=== PATIENT | female | born 1965 | race Caucasian/White ===

== ENCOUNTER 2021-06-16 14:16 | Outpatient (REF) | payer MEDICARE, OTHER, SELFPAY ==
[2021-06-16 15:22] LABS: MANUAL DIFF FLAG NO
[2021-06-16 15:36] LABS: Basophils Percent Auto 0.3 % (0-2); Eosinophils Percent Auto 0.3 % (0-4); Hematocrit 42.8 % (37-47); Imm Gran Abs Auto 0.03 X10*3/uL (0.00-0.03); Imm Gran Pct Auto 0.5 % (0.0-0.4); Lymphocytes Absolute Auto 1.3 X10*3/uL (1.2-4.9); Lymphocytes Percent Auto 20.7 % (20-40); Mean Corpuscular HGB Conc 32.7 g/dl (31.0-35.0); Mean Corpuscular Hemoglobin 28.4 pg (27.0-33.0); Mean Corpuscular Volume 86.8 fL (80-98); Mean Platelet Volume 10.4 fL (9.4-12.3); Monocytes Absolute Auto 0.5 X10*3/uL (0.1-1.2); Monocytes Percent Auto 8.4 % (2-11); Neutrophils Absolute Auto 4.4 X10*3/uL (2.0-8.3); Neutrophils Percent Auto 69.8 % (45-73); Platelet Count 153 X10*3/uL (160-400); Red Blood Count 4.93 X10*6/uL (4.20-5.50); Red Cell Distribution Width 13.3 % (11.0-16.0); White Blood Count 6.3 X10*3/uL (4.8-10.8)
== END 2021-06-16 14:17 | disposition home or self-care (01) ==
LOC: HO.LAB 14:16
PROVIDERS: PCP Internal Medicine; Visit Provider Surgery
DX: D05.11 Intraductal carcinoma in situ of right breast (principal); D64.9 Anemia, unspecified
CPT/HCPCS: 36415; 85025; 99212

== ENCOUNTER 2021-07-17 13:55 | Outpatient (REF) | payer MEDICARE, OTHER, SELFPAY ==
--- NOTE | ~2021-07-17 | MM_ITS ---
EXAMINATION: MM SCREENING DIGITAL BREAST TOMOSYNTHESIS, BILATERAL CLINICAL INFORMATION: Due for yearly. 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 COMPARISON: Mammography: 01/24/2019, 01/09/2018, targeted ultrasound left breast 01/09/2018 TECHNIQUE: Digital breast tomosynthesis is performed in both the craniocaudal and mediolateral oblique views along with computer-aided detection (CAD). Synthesized 2D images are generated from the tomosynthesis. FINDINGS: There are scattered areas of fibroglandular density (ACR BI-RADS breast composition Category b). There are no significant masses, abnormal calcifications, or other abnormalities. There are minor post therapy changes posterior inferior right breast with mild reduced breast size and stable scarring. Bilateral breast parenchymal pattern is similar to prior studies. No developing density. No significant changes. MM/MM tomosynthesis screening BI IMPRESSION: No mammographic evidence of malignancy. ASSESSMENT: BI-RADS 2: Benign RECOMMENDATION: Routine annual mammography screening. This patient's information was entered into a reminder system with a target due date for their next mammogram.
== END 2021-07-17 13:56 | disposition home or self-care (01) ==
LOC: HO.MAMMO 13:55
PROVIDERS: PCP Internal Medicine; Visit Provider Surgery
DX: Z12.31 Encounter for screening mammogram for malignant neoplasm of breast (principal)
CPT/HCPCS: 77063; 77067

== ENCOUNTER → 2021-12-04 13:04 | Outpatient (BNVA) | payer MEDICARE, OTHER, SELFPAY | PROVIDERS: PCP Internal Medicine; Referring Provider Internal Medicine; Visit Provider Surgery | DX: K62.5 Hemorrhage of anus and rectum (principal); K60.2 Anal fissure, unspecified | CPT/HCPCS: 99212 ==

== ENCOUNTER 2022-02-03 05:53 | Day surgery (SDC) | payer MEDICARE, OTHER, SELFPAY ==
[2022-01-29 13:59] VITALS: BMI 28.1
--- NOTE | 2022-02-02 09:43 | P.CONAN_ITS ---
Documented by User: Ivette Hutchison NP 02/02/22 09:45 HPI - Anesthesia Eval Consult details Narrative: 56yo F for EUA, Hemorrhoidectomy, Poss Sphincterotomy *Mult Allergies* PMFSH Active Problems Active Problems: All Active Problems (Updated 01/29/22 @ 13:57 by Vandana Kwon RN) Anemia (Acute) Ductal carcinoma in situ of right breast (Acute) Rectal bleeding (Acute) Anal fissure (Acute) Prolapsed internal hemorrhoids (Acute) History of rectal sphincterotomy (Acute 05/14/19) Past Medical History Medical History History of right breast cancer Family History Family History Paternal Grandmother History of breast cancer Maternal Grandmother History of breast cancer, Onset Age: 53 Surgical History Surgical History (Updated 01/29/22 @ 13:56 by Vandana Kwon RN) History of 2 sections History of lumpectomy of right breast History of rectal sphincterotomy (05/14/19) History of repair of left rotator cuff History of right knee surgery History of tonsillectomy Social History Social History Alcohol intake: never Patient Tobacco Use Status: Never used Tobacco Use of substances other than those prescribed or required for medical reasons: No Advance Directives: No Advance Directives Information Provided: Yes Advance Directives on File: No Meds Allergies Allergy/AdvReac Type Severity Reaction Status Date / Time sulfamethoxazole Allergy Mild Hives Verified 12/04/21 13:17 [From Bactrim] trimethoprim [From Bactrim] Allergy Mild Hives Verified 12/04/21 13:17 lisinopril Allergy Unknown Unknown Verified 12/04/21 13:17 Sulfa (Sulfonamide Allergy Unknown Itchy Eyes Verified 12/04/21 13:17 Antibiotics) Benadryl Allergy Mild Fainting Uncoded 12/04/21 13:17 Cortisone Allergy Mild Swelling Uncoded 12/04/21 13:17 Home Medications Medication Instructions Recorded Confirmed Last Taken Type diazepam 5 mg tablet 5 mg PO TID PRN 12/04/21 01/29/22 Unknown History Exam Exam Date and Time: February 02, 2022 0943 Height,Weight and Vital Signs: Height 5 ft 1 in Weight 67.585 kg Pertinent Lab Results Pertinent Lab Results: Laboratory Tests 06/16/21 15:02 WBC 6.3 Hgb 14.0 Hct 42.8 Plt Count 153 L Assessment and Plan Assessment Anesthesia Assessment: Chart Reviewed Documented by User: Brie Thornton MD 02/03/22 07:19 [facility] Past Medical History Medical History History of right breast cancer Functional capacity: independent ambulation Patient : No Family History Family History Paternal Grandmother History of breast cancer Maternal Grandmother History of breast cancer, Onset Age: 53 Family history of problems with anesthesia: No Surgical History Surgical History (Updated 01/29/22 @ 13:56 by Vandana Kwon RN) History of 2 sections History of lumpectomy of right breast History of rectal sphincterotomy (05/14/19) History of repair of left rotator cuff History of right knee surgery History of tonsillectomy History of Problems with Anesthesia: No Social History Social History Alcohol intake: never Patient Tobacco Use Status: Never used Tobacco Use of substances other than those prescribed or required for medical reasons: No Advance Directives: No Advance Directives Information Provided: Yes Advance Directives on File: No Meds Allergies Allergy/AdvReac Type Severity Reaction Status Date / Time sulfamethoxazole Allergy Mild Hives Verified 12/04/21 13:17 [From Bactrim] trimethoprim [From Bactrim] Allergy Mild Hives Verified 12/04/21 13:17 lisinopril Allergy Unknown Unknown Verified 12/04/21 13:17 Sulfa (Sulfonamide Allergy Unknown Itchy Eyes Verified 12/04/21 13:17 Antibiotics) Benadryl Allergy Mild Fainting Uncoded 12/04/21 13:17 Cortisone Allergy Mild Swelling Uncoded 12/04/21 13:17 Home Medications Medication Instructions Recorded Confirmed Last Taken Type diazepam 5 mg tablet 5 mg PO TID PRN 12/04/21 01/29/22 Unknown History Exam Airway Mallampati Class: II (E) TM Dist: >3cm Neck ROM: Full Heart: RRR Lungs: CTA Assessment and Plan Final Anesthetic Review Family History of Problems with Anesthesia: No History of Problems with Anesthesia: No NPO: Yes ASA Class: II Final Preanesthetic Review: No Changes in Pt Med Stat, Meds/Allgs Chart Reviewed, Consent Obtained/Reviewed and Anes Risks/Benef Reviewed Patient Risk: Low Procedure Risk: Low Anesthetic Plan Anesthetic Plan: GA Disposition: Standard PACU
[2022-02-03] VITALS (13 sets, daily range): BP systolic 112–135; BP diastolic 57–83; PULSE 53–85; RESP 14–20; TEMP 36.1–36.3; O2SAT 97–100
--- NOTE | 2022-02-03 07:23 | MHC.SHP ---
Pre-Procedural Eval Section A Date of Service: 02/03/22 The patient is an INPATIENT: No Changes since office visit: Yes Patient answered all questions; No Cold of Flu in the past 2 weeks, No New Medical Problems and No Changes in Medication The History & Physical has been completed within 30 days and I have reviewed it.: No Section B Chief Complaint: Hemorrhoids with complication Details of Present Illness: persistent rectal pain and bleeding with a previous history of an anal fissure Relevant Family History (Specify if Yes): No Relevant Social History: None Present Medications: see Short Stay Collaborative assessment Medical History: Significant History (DCIS right breast) History of Previous Operations: Relevant previous surgery/procedure and date(s) (anal sphincterotomy) Allergies: Allergies Allergy/AdvReac Type Severity Reaction Status Date / Time sulfamethoxazole Allergy Mild Hives Verified 12/04/21 13:17 [From Bactrim] trimethoprim [From Bactrim] Allergy Mild Hives Verified 12/04/21 13:17 lisinopril Allergy Unknown Unknown Verified 12/04/21 13:17 Sulfa (Sulfonamide Allergy Unknown Itchy Eyes Verified 12/04/21 13:17 Antibiotics) Benadryl Allergy Mild Fainting Uncoded 12/04/21 13:17 Cortisone Allergy Mild Swelling Uncoded 12/04/21 13:17 Review of Systems Sugical H&P ROS: Negative: Constitution, Cardiovascular, Respiratory, Neurological, Psychiatric, Hem-Onc, Allergic/Immunologic, Gastrointestinal, Genitourinary, Musculoskeletal, Integumentary, Endocrine and Eyes/Ears/Nose/Throat Exam Surgical H&P Exam: Normal: HEENT, Normal: Heart, Normal: Lungs, Normal: Extremities, Normal: Abdomen, Normal: Skin and Normal: Neurological Plan Diagnosis/Plan: Unchanged I have reviewed the history and physical and performed a pertinent physical examination on my patient. No changes have occurred unless specified.
--- NOTE | 2022-02-03 07:24 | W.PM.OPN ---
Operative Note Operative Note Date of Service: 02/03/22 Narrative: Preoperative diagnosis: Rectal pain and bleeding Postoperative diagnosis: prolapsing, bleeding hemorrhoids Procedure: EUA, hemorrhoidectomy Surgeon: James Huff MD Employment Consultant: none Anesthesia:General Endotracheal Indications for procedure: 56 year old female patient with complaints of persistent pain and rectal bleeding found to possibly have an anal fissure and internal prolapsing hemorrhoids Operative findings: normal anal sphincter tone without fissure. Two hemorrhoids noted anterior anal wall with ulceration of the mucosa. Specimen: Hemorrhoid x2 Estimated blood loss: 5 mL Complications: none Procedure details: patient was brought to the OR placed in a supine position. After administering general anesthesia the patient was placed in a prone position. A surgical time-out was called the consent confirmed. Patient received preoperative antibiotics and Venodyne boots were in place. Local anesthesia consisting of 0.5% Sensorcaine was then infiltrated around the perianal skin. Exam under anesthesia was then performed using a large anoscope. Digital examination revealed no evidence of anal sphincter hypertrophy. No anal fissure could be identified. Two areas of ulcerated hemorrhoids were identified in the anterior anal wall. No posterior wall lateral wall hemorrhoids were identified. First hemorrhoid was grasped with a triangular clamp. This was then clamped at its base using a tonsil clamp. A 3-0 chromic suture was then tied at its base and baseball-type stitch used to reapproximate the mucosa. This was continued as a running lock stitch back to the base of the hemorrhoid. The hemorrhoid was excised and sent to pathology for further examination. In a similar fashion the 2nd hemorrhoid was also grasped with a triangular clamp and then grasped at its base using a tonsil clamp. This was also sutured using a 3-0 chromic suture in a similar fashion. The wound was then packed with a Ray-Arnoldo and observed for several minutes. No bleeding was noted at this time. Wounds were irrigated and suctioned dry. Packing of Xeroform rolled around a dressing sponge was then placed. Additional local was infiltrated around the perianal skin. Patient was then returned to a supine position And will come from anesthesia. Patient tolerated the procedure well. Sponge, instrument, and needle counts reported as correct. Patient was transferred to PACU in stable condition.
[2022-02-03] MEDS: oxyCODONE HCl Immed Release 5 MG TABLET PO (09:00)
[2022-02-03] MEDS: fentaNYL citrate/PF 100 MCG/2 ML VIAL 25 MCG IVPUSH ×3 (09:02→10:01)
[2022-02-03] MEDS: Ketorolac Tromethamine 30 MG/ML VIAL 15 MG IVPUSH (09:10)
[2022-02-03] MEDS: ondansetron HCL 4 MG/2 ML VIAL IVPUSH (09:18)
--- NOTE | 2022-02-04 07:27 | HO.POSTANES ---
Post Anesthesia Evaluation Post Anesthesia Evaluation Anesthesia: General Mental Status: Awake Pain Control: Satisfactory Nausea/Vomiting: None Hydration: Adequate Anesthesia-Related Issues: No Anes. Related Issues
== END 2022-02-03 10:56 ==
LOC: HO.SSS 05:54
PROVIDERS: PCP Internal Medicine; Visit Provider Surgery
PROC: (CPT 46260; principal; 2022-02-03 07:30)
DX: K64.8 Other hemorrhoids (principal); K64.4 Residual hemorrhoidal skin tags; D64.9 Anemia, unspecified; Z85.3 Personal history of malignant neoplasm of breast; Z79.899 Other long term (current) drug therapy; Z88.2 Allergy status to sulfonamides; Z88.8 Allergy status to other drugs, medicaments and biological substances; Z98.890 Other specified postprocedural states
CPT/HCPCS: 46260; 88304; J1100; J1885; J2250; J2405; J2550; J3010

== ENCOUNTER → 2022-02-09 14:44 | Outpatient (BNVA) | payer MEDICARE, OTHER, SELFPAY | PROVIDERS: PCP Internal Medicine; Referring Provider Internal Medicine; Visit Provider Surgery | DX: Z48.815 Encounter for surgical aftercare following surgery on the digestive system (principal); Z87.19 Personal history of other diseases of the digestive system | CPT/HCPCS: 99212 ==

== ENCOUNTER → 2022-02-26 08:59 | Outpatient (BNVA) | payer MEDICARE, OTHER, SELFPAY | PROVIDERS: PCP Internal Medicine; Referring Provider Internal Medicine; Visit Provider Surgery | DX: Z09 Encounter for follow-up examination after completed treatment for conditions other than malignant neoplasm (principal); Z87.19 Personal history of other diseases of the digestive system | CPT/HCPCS: 99212 ==

== ENCOUNTER → 2022-06-17 15:01 | Outpatient (BNVA) | payer MEDICARE, OTHER, SELFPAY | PROVIDERS: PCP Internal Medicine; Visit Provider Surgery | DX: K62.5 Hemorrhage of anus and rectum (principal) | CPT/HCPCS: 46600; 99212 ==

== ENCOUNTER 2022-07-22 14:01 | Outpatient (REF) | payer MEDICARE, OTHER, SELFPAY ==
--- NOTE | ~2022-07-22 | MM_ITS ---
EXAMINATION: MM SCREENING DIGITAL BREAST TOMOSYNTHESIS, BILATERAL CLINICAL INFORMATION: Screening. Asymptomatic. History right DCIS posterior 6:00 status post lumpectomy and radiation COMPARISON: Mammography: 07/17/2021, 01/24/2019, 01/09/2018 TECHNIQUE: Digital breast tomosynthesis is performed in both the craniocaudal and mediolateral oblique views along with computer-aided detection (CAD). Synthesized 2D images are generated from the tomosynthesis. FINDINGS: There are scattered areas of fibroglandular density (ACR BI-RADS breast composition Category b). Right breast post therapy changes are again noted with mild reduced breast size and stable scarring. Neither breast shows interval mass or architectural abnormality or abnormal calcifications. The axilla are unremarkable. No significant changes. MM/MM tomosynthesis screening BI IMPRESSION: -No mammographic evidence of malignancy. -Post therapy changes right breast. ASSESSMENT: BI-RADS 2: Benign RECOMMENDATION: Routine annual mammography screening. This patient's information was entered into a reminder system with a target due date for their next mammogram.
== END 2022-07-22 14:02 | disposition home or self-care (01) ==
LOC: HO.MAMMO 14:01
PROVIDERS: PCP Internal Medicine; Visit Provider Internal Medicine
DX: Z12.31 Encounter for screening mammogram for malignant neoplasm of breast (principal)
CPT/HCPCS: 77063; 77067

== ENCOUNTER → 2023-06-09 13:02 | Outpatient (BNVA) | payer OTHER, SELFPAY | PROVIDERS: PCP Internal Medicine; Visit Provider Physician Assistant Medical | DX: S61.210A Laceration without foreign body of right index finger without damage to nail, initial encounter (principal); W26.9XXA Contact with unspecified sharp object(s), initial encounter | CPT/HCPCS: 12001; 99203 ==

== ENCOUNTER → 2023-06-28 07:58 | Outpatient (BNVA) | payer OTHER, SELFPAY | PROVIDERS: PCP Internal Medicine; Visit Provider Physician Assistant Medical | DX: S61.220D Laceration with foreign body of right index finger without damage to nail, subsequent encounter (principal); W26.9XXD Contact with unspecified sharp object(s), subsequent encounter | CPT/HCPCS: 99213 ==

== ENCOUNTER 2023-06-28 09:00 | Outpatient (AMB) | payer MEDICARE, OTHER, SELFPAY ==
--- NOTE | 2023-06-28 09:05 | MHC.OFFVIS ---
Intake Vital Signs 06/28/23 09:21 Height 5 ft 1 in Weight 150 lb 2 oz BMI 28.4 BP 120/72 Blood Pressure Location Lt brachial Position Sitting Pulse 65 Intake Visit Reasons: Yearly breast exam Intake Note: Patient is seen in office for yearly breast exam. Patient c/o: denies any changes or concerns regarding the breast. Registration Specialist Required: No Certified Medical Coder: Certified Medical Coder Present Accompanied by: Self / Same As Patient Allergies sulfamethoxazole [From Bactrim] Allergy (Mild, Verified 06/28/23 09:17) Hives trimethoprim [From Bactrim] Allergy (Mild, Verified 06/28/23 09:17) Hives lisinopril Allergy (Unknown, Verified 06/28/23 09:17) Unknown Sulfa (Sulfonamide Antibiotics) Allergy (Unknown, Verified 06/28/23 09:17) Itchy Eyes Benadryl Allergy (Mild, Uncoded 06/28/23 09:17) Fainting Cortisone Allergy (Mild, Uncoded 06/28/23 09:17) Swelling Medication List - Last Reconciled 06/28/23 by James Huff MD docusate sodium (Colace) 100 mg PO DAILY loratadine 10 mg PO DAILY omeprazole 40 mg PO DAILY HPI HPI Comments History of Present Illness Details Vandana Gardner is a 58 year old female patient of Francis Mo and? former patient of Dr. Hills presenting for a follow up breast examination following a right partial?mastectomy for DCIS on 02/19/2014. She underwent partial? breast irradiation at the [facility] completed on?05/03/2014. She started on?Tamoxifen on two occasions?but needed to stop the medication because of severe?side effects. Breast pathology revealed DCIS grade 1, 0.25 cm in diameter.? Patient lost her to a glioblastoma at the time of her diagnosis.? She currently denies any ongoing breast symptoms?in either side but does note some scarring at the incision site the lower portion of the right breast.? Mammography dated 07/17/2021 revealed no mammographic evidence of malignancy in either breast with only benign findings (BI-RADS 2). Annual screening mammography is recommended. She reports her daughter was diagnosed with her 4th episode of cervical cancer. [facility] Medical History History of right breast cancer Surgical History History of 2 sections History of lumpectomy of right breast History of rectal sphincterotomy (05/14/19) History of repair of left rotator cuff History of right knee surgery History of tonsillectomy Family History (Updated 06/28/23 @ 09:17 by KONRAD Medrano) Paternal Grandmother History of breast cancer Maternal Grandmother History of breast cancer, Onset Age: 53 Daughter Cervical cancer Maternal Aunt Ovarian cancer Social History Alcohol intake: never Patient Tobacco Use Status: Never used Tobacco Review of Systems Const Denies chills, Denies fever(s), Denies headache(s) and Denies poor appetite ENT Denies dizziness and Denies headache(s) Card Denies chest pain, Denies rapid heart rate, Denies palpitations and Denies slow heart rate Resp Denies chest congestion, Denies cough, Denies pain on inspiration and Denies wheezing GI Denies abdominal pain, Denies bloating, Reports hematochezia, Denies change in stool character, Denies constipation, Denies nausea, Denies vomiting and Denies hematemesis Musc Denies back pain, Denies arthralgias, Denies joint swelling and Denies numbness Skin/Breast Denies change in pigmentation, Denies erythema and Denies rash Neuro Denies dizziness, Denies headache(s) and Denies numbness Psych Denies anxiety and Denies depression Endo Denies palpitations Mariano/Lymph Denies easy bleeding, Denies easy bruising and Denies lymphadenopathy Aller/Immun Denies wheezing Physical Exam Const General: no acute distress, well developed, alert and awake Nutritional Appearance: well nourished Orientation/consciousness: patient oriented x3 Limitations: no limitations Chest Other: Right breast: Well healed incision with superficial scarring at the 6 o'clock position. No other palpable mass, skin change, nipple discharge, or enlarged lymph node. Left breast: No skin change, no nipple discharge, no palpable mass, no enlarged lymph nodes. Chest/axillae images: 1. Resp Effort & Inspection: normal respiratory effort, no cough and no respiratory distress GI Other: Rectal examination: External examination reveals some minor skin tags. No tenderness to palpation. No evidence of abscess or thrombosis. Digital rectal examination mild tenderness to palpation of the anterior rectal wall, normal sphincter tone is identified. No blood noted on examination finger. No palpable mass. Anoscopic examination: Difficult examination due to tenderness however area of inflammation is noted in the anterior rectal wall at the site of previous surgery. No definite hemorrhoid is identified. No active bleeding is identified. No other mass or hemorrhoid is identified. Skin Other: Warm, dry, no rash, normal color Neuro General: patient oriented x3 Extrem Other: No cyanosis, clubbing, or edema. Assessment & Plan Assessment & Plan (1) Ductal carcinoma in situ of right breast: Code(s): D05.11 - Intraductal carcinoma in situ of right breast Plan: Status post right breast lumpectomy with partial breast radiation in 2013 for DCIS. Examination today reveals no evidence of recurrence disease in either breast. Mammogram from 07/22/2023 no mammographic evidence of malignancy (BI-RADS 2). She is scheduled for a follow-up yearly annual mammogram on 07/26/2023. Follow-up examination recommended in 1 year. Coding Level of Care Code Est Pt Level 3 (01381) Diagnoses Ductal carcinoma in situ of right breast D05.11
[2023-06-28 09:21] VITALS: BP 120/72; PULSE 65; BMI 28.4
== END 2023-06-28 09:29 | disposition home or self-care (01) ==
PROVIDERS: PCP Internal Medicine; Visit Provider Surgery
DX: Z86.000 Personal history of in-situ neoplasm of breast (principal)
CPT/HCPCS: 99213

== ENCOUNTER 2023-07-05 13:12 | Outpatient (AMB) | payer OTHER, SELFPAY ==
--- NOTE | 2023-07-05 13:54 | MHC.OFFVIS ---
Intake Vital Signs 07/05/23 13:58 Height 5 ft 1 in Weight 152 lb BMI 28.7 Handedness Right Intake Visit Reasons: WC F/U -Rt 2nd Digit PIP Lac Intake Note: osman is a 58 year old right hand dominant female who presents today for her right 2nd Digit PIP laceration. Patient reports when she was pulling the metal fence closed her finger got caught under it and cut her pointer finger. She states that her finger is in pain and it hurts when she moves it and touch it. Patient reports noticing a bump on the base of the PIP joint. Denies numbness and tingling. Allergies sulfamethoxazole [From Bactrim] Allergy (Mild, Verified 07/05/23 13:58) Hives trimethoprim [From Bactrim] Allergy (Mild, Verified 07/05/23 13:58) Hives lisinopril Allergy (Unknown, Verified 07/05/23 13:58) Unknown Sulfa (Sulfonamide Antibiotics) Allergy (Unknown, Verified 07/05/23 13:58) Itchy Eyes Benadryl Allergy (Mild, Uncoded 06/28/23 09:17) Fainting Cortisone Allergy (Mild, Uncoded 06/28/23 09:17) Swelling HPI WC F/U -Rt 2nd Digit PIP Lac HPI Details Osman is a 58 year old right hand dominant woman who presents with a right index finger laceration. This is a work-related injury, where she cut her finger on a metal gate, DOI: 06/03/23 She has a laceration to volar aspect of her right index finger, proximal to index finger PIP joint. This was never sutured, went on to heal on its own. She is concerned about a rough bump where it healed and hypersensitivity just distal to the laceration. She says she feels like there is a pea underneath her skin She denies any numbness or tingling and says her sensation is intact. She showed me some pictures today in clinic of her initial injury and her recovery timeline. She denies any fevers, chills, or evidence of infection [facility] Medical History History of right breast cancer Surgical History History of 2 sections History of lumpectomy of right breast History of rectal sphincterotomy (05/14/19) History of repair of left rotator cuff History of right knee surgery History of tonsillectomy Family History Paternal Grandmother History of breast cancer Maternal Grandmother History of breast cancer, Onset Age: 53 Daughter Cervical cancer Maternal Aunt Ovarian cancer Social History Alcohol intake: never Patient Tobacco Use Status: Never used Tobacco Review of Systems Const All systems reviewed & are unremarkable except as noted in HPI and below Physical Exam Vital Signs: BMI result Body Mass Index 28.7 Const General: cooperative, healthy appearing and no acute distress Orientation/consciousness: patient oriented x3 HEENT Head: Yes normocephalic and Yes atraumatic Eyes EOM: EOMs intact bilaterally Resp Effort & Inspection: normal respiratory effort and able to speak in complete sentences Cardio Jugular venous distension: no JVD Skin General skin exam: turgor normal Rashes: no rashes Neuro General: patient oriented x3 Extrem Other: Evaluation of Right Upper Extremity: The patient is alert, oriented, and in no acute distress Neuro: Median, Ulnar, Radial nerves motor and sensory intact and sensation is normal to the tips of all digits Vascular: Cap refill brisk ROM: General: Wound well healed, volar aspect of the small finger There is a thickened scar just proximal to PIP joint, measuring ~6mm in diameter No mass felt under the skin No evidence of infection Some abnormal sensation distal to PIP joint over middle phalanx Normal sensation to radial & ulnar digital nerves Good strong FDS and FDP tendon functions, no pain with resisted testing of those tendons She can make a tight fist and extend all his digits Psych Appearance: grossly normal Affect: normal affect Attitude: cooperative Assessment & Plan Assessment & Plan (1) Laceration of right index finger: Code(s): S61.210A - Laceration without foreign body of right index finger without damage to nail, initial encounter Plan Assessment & Plan: 1. Right index finger laceration, proximal to the PIP joint DOI: 06/03/23 This is a work-related injury I educated her about this injury No evidence of flexor tendon or digital nerve injury This is healing well with a slightly thickened scar but she is only 4 weeks out I educated her about wound healing,her scar, and possible development of an epidermal inclusion cyst and what that would look like. She should give this a few months to resolve and see if the scar area remodels She can follow up prn She knows to contact us if she has any concerns. Scribed for Dariana Mckee MD by Gordy Vázquez, medical records manager, on 07/05/23 at 2:30 PM, EST. Coding Level of Care Code New Pt Level 3 (78960) Diagnoses Laceration of right index finger S61.210A
[2023-07-05 13:58] VITALS: BMI 28.7
== END 2023-07-05 14:52 | disposition home or self-care (01) ==
PROVIDERS: PCP Internal Medicine; Visit Provider Orthopaedic Surgery
DX: S61.210A Laceration without foreign body of right index finger without damage to nail, initial encounter (principal)
CPT/HCPCS: 99203

== ENCOUNTER → 2023-07-05 13:12 | Outpatient (BNVA) | payer OTHER, MEDICARE, SELFPAY | PROVIDERS: PCP Internal Medicine; Visit Provider Orthopaedic Surgery | DX: S61.210D Laceration without foreign body of right index finger without damage to nail, subsequent encounter (principal) | CPT/HCPCS: 99202 ==

== ENCOUNTER → 2023-07-26 14:30 | Outpatient (BNV) | payer MEDICARE, OTHER, SELFPAY | PROVIDERS: PCP Internal Medicine; Visit Provider Radiology Diagnostic Radiology | DX: Z12.31 Encounter for screening mammogram for malignant neoplasm of breast (principal) | CPT/HCPCS: 77063; 77067 ==

== ENCOUNTER 2023-07-26 14:37 | Outpatient (REF) | payer MEDICARE, OTHER, SELFPAY | END 2023-07-26 14:38 | disposition home or self-care (01) | LOC: HO.MAMMO 14:37 | PROVIDERS: PCP Internal Medicine; Visit Provider Internal Medicine | DX: Z12.31 Encounter for screening mammogram for malignant neoplasm of breast (principal) | CPT/HCPCS: 77063; 77067 ==

== ENCOUNTER 2024-06-28 09:25 | Outpatient (AMB) | payer MEDICARE, SELFPAY ==
--- NOTE | 2024-06-28 09:41 | A.OFFVIS_ITS ---
Vital Signs 3 06/28/24 09:43 Height 5 ft 1 in Weight 152 lb BMI 28.7 BP 140/77 H Blood Pressure Location Lt brachial Position Sitting Intake Visit Reasons: Yearly breast exam Intake Note: Patient is seen in office for yearly breast exam. Patient c/o: left breast pain, comes and goes at random times, for one month, near the axilla mm sched: 07/31/24 Sales And Service Consultant Required: No Presetter Operator: Presetter Operator Present Accompanied by: Self / Same As Patient Allergies sulfamethoxazole [From Bactrim] Allergy (Mild, Verified 06/28/24 09:41) Hives trimethoprim [From Bactrim] Allergy (Mild, Verified 06/28/24 09:41) Hives lisinopril Allergy (Unknown, Verified 06/28/24 09:41) Unknown Sulfa (Sulfonamide Antibiotics) Allergy (Unknown, Verified 06/28/24 09:41) Itchy Eyes Benadryl Allergy (Mild, Uncoded 06/28/24 09:41) Fainting Cortisone Allergy (Mild, Uncoded 06/28/24 09:41) Swelling HPI Comments Details: Vandana Gardner is a 59 year old female patient of Francis Mo and? former patient of Dr. Hills presenting for a follow up breast examination following a right partial?mastectomy for DCIS on 02/19/2014. She underwent partial? breast irradiation at the [facility] completed on?05/03/2014. She started on?Tamoxifen on two occasions?but needed to stop the medication because of severe?side effects. Breast pathology revealed DCIS grade 1, 0.25 cm in diameter.? Patient lost her to a glioblastoma at the time of her diagnosis.? She currently denies any ongoing breast symptoms?in either side but does note some scarring at the incision site the lower portion of the right breast.? Mammography dated 07/17/2021 revealed no mammographic evidence of malignancy in either breast with only benign findings (BI-RADS 2). Annual screening mammography is recommended. She reports her daughter was diagnosed with her 4th episode of cervical cancer. [facility] Medical History History of right breast cancer Surgical History History of 2 sections History of lumpectomy of right breast History of rectal sphincterotomy (05/14/19) History of repair of left rotator cuff History of right knee surgery History of tonsillectomy Family History Paternal Grandmother History of breast cancer Maternal Grandmother History of breast cancer, Onset Age: 53 Daughter Cervical cancer Maternal Aunt Ovarian cancer Social History Alcohol intake: never Patient Tobacco Use Status: Never used Tobacco Review of Systems Const Denies chills, Denies fever(s), Denies headache(s) and Denies poor appetite ENT Denies dizziness and Denies headache(s) Card Denies chest pain, Denies rapid heart rate, Denies palpitations and Denies slow heart rate Resp Denies chest congestion, Denies cough, Denies pain on inspiration and Denies wheezing GI Denies abdominal pain, Denies bloating, Reports hematochezia, Denies change in stool character, Denies constipation, Denies nausea, Denies vomiting and Denies hematemesis Musc Denies back pain, Denies arthralgias, Denies joint swelling and Denies numbness Skin/Breast Denies change in pigmentation, Denies erythema and Denies rash Neuro Denies dizziness, Denies headache(s) and Denies numbness Psych Denies anxiety and Denies depression Endo Denies palpitations Mariano/Lymph Denies easy bleeding, Denies easy bruising and Denies lymphadenopathy Aller/Immun Denies wheezing Physical Exam Const General: no acute distress, well developed, alert and awake Nutritional Appearance: well nourished Orientation/consciousness: patient oriented x3 Limitations: no limitations Chest Other: Right breast: Well healed incision with superficial scarring at the 6 o'clock position. No other palpable mass, skin change, nipple discharge, or enlarged lymph node. Left breast: No skin change, no nipple discharge, no palpable mass, no enlarged lymph nodes. Chest/axillae images: 2 1. area of superficial scaring right breast s/p partial mastectomy and RT Resp Effort & Inspection: normal respiratory effort, no cough and no respiratory distress Skin Other: Warm, dry, no rash, normal color Neuro Other: Mobility Assessment: 1. 3 meter assessment time (seconds) 5 2. Gait observations: Normal balance and gait General: patient oriented x3 Extrem Other: No cyanosis, clubbing, or edema. Assessment & Plan Assessment & Plan (1) Ductal carcinoma in situ of right breast: Code(s): D05.11 - Intraductal carcinoma in situ of right breast Category: Medical Plan: Status post right breast lumpectomy with partial breast radiation in 2013 for DCIS. Examination today reveals no evidence of recurrence disease in either breast. Mammogram from 07/26/2023 no mammographic evidence of malignancy (BI- RADS 2). She is scheduled for a follow-up yearly annual mammogram on 07/31/2024. Follow-up examination recommended in 1 year. Coding Level of Care Code Est Pt Level 3 (78252) Diagnoses Ductal carcinoma in situ of right breast D05.11
[2024-06-28 09:43] VITALS: BP 140/77; BMI 28.7
== END 2024-06-28 09:55 | disposition home or self-care (01) ==
PROVIDERS: PCP Internal Medicine; Visit Provider Surgery
DX: Z85.3 Personal history of malignant neoplasm of breast (principal)
CPT/HCPCS: 99213

== ENCOUNTER → 2024-06-28 09:25 | Outpatient (BNVA) | payer MEDICARE, SELFPAY | PROVIDERS: PCP Internal Medicine; Visit Provider Surgery | DX: Z86.000 Personal history of in-situ neoplasm of breast (principal) | CPT/HCPCS: 99212 ==

== ENCOUNTER 2024-07-31 14:37 | Outpatient (REF) | payer MEDICARE, SELFPAY ==
--- NOTE | ~2024-07-31 | MM_ITS ---
EXAMINATION: MM SCREENING DIGITAL BREAST TOMOSYNTHESIS, BILATERAL CLINICAL INFORMATION: Screening. Asymptomatic. COMPARISON: Mammography: Comparison is made with available priors. TECHNIQUE: Digital breast tomosynthesis is performed in both the craniocaudal and mediolateral oblique views along with computer-aided detection (CAD). Synthesized 2D images are generated from the tomosynthesis. FINDINGS: There are scattered areas of fibroglandular density (ACR BI-RADS breast composition Category b). Right post surgical changes are stable. There are no significant masses, abnormal calcifications, or other abnormalities. MM/MM tomosynthesis screening BI IMPRESSION: No mammographic evidence of malignancy. Patient describes previous breast pain. No pain at this time. Recommend clinical evaluation and if there is focal pain or if the pain is deemed clinically significantly diagnostic workup can be ordered and performed. ASSESSMENT: BI-RADS BI-RADS 2 - Benign Findings RECOMMENDATION: Routine annual mammography screening. 1 year F/U This examination should not preclude the clinical evaluation of a suspicious palpable abnormality. This patient's information was entered into a reminder system with a target due date for their next mammogram. Electronically signed by: Ainsley Ibrahim DO 08/02/2024 06:51 PM EDT
== END 2024-07-31 14:38 | disposition home or self-care (01) ==
LOC: HO.MAMMO 14:37
PROVIDERS: PCP Internal Medicine; Visit Provider Internal Medicine
DX: Z12.31 Encounter for screening mammogram for malignant neoplasm of breast (principal)
CPT/HCPCS: 77063; 77067

== ENCOUNTER → 2024-07-31 14:45 | Outpatient (BNV) | payer MEDICARE, SELFPAY | PROVIDERS: PCP Internal Medicine; Visit Provider Internal Medicine | DX: Z12.31 Encounter for screening mammogram for malignant neoplasm of breast (principal) | CPT/HCPCS: 77063; 77067 ==

== ENCOUNTER 2025-06-28 09:15 | Outpatient (AMB) | payer MEDICARE, SELFPAY ==
--- NOTE | 2025-06-28 09:17 | MHC.OFFVIS ---
Vital Signs 06/28/25 09:26 Height 5 ft 1 in Weight 144 lb 6 oz BMI 27.3 BP 138/72 Blood Pressure Location Lt brachial Position Sitting Pulse 77 Intake Visit Reasons: Yearly breast exam Intake Note: Patient is seen in office for yearly breast exam. Patient c/o: denies any changes or concerns mm:07/31/24 County Home Demonstrator Required: No Lumber Piler Operator: Lumber Piler Operator Present Accompanied by: Self / Same As Patient Allergies sulfamethoxazole (From Bactrim) Allergy (Mild, Verified 06/28/25 09:25) Hives trimethoprim (From Bactrim) Allergy (Mild, Verified 06/28/25 09:25) Hives lisinopril Allergy (Unknown, Verified 06/28/25 09:25) Unknown Sulfa (Sulfonamide Antibiotics) Allergy (Unknown, Verified 06/28/25 09:25) Itchy Eyes Benadryl Allergy (Mild, Uncoded 06/28/25 09:25) Fainting Cortisone Allergy (Mild, Uncoded 06/28/25 09:25) Swelling Medication List - Last Reconciled 06/28/25 by James Huff MD docusate sodium (Colace) 100 mg PO DAILY loratadine 10 mg PO DAILY omeprazole 40 mg PO DAILY HPI Comments Details: Vandana Gardner is a 60 year old female patient of Francis Mo and? former patient of Dr. Hills presenting for a follow up breast examination following a right partial?mastectomy for DCIS on 02/19/2014. She underwent partial? breast irradiation at the [facility] completed on?05/03/2014. She started on?Tamoxifen on two occasions?but needed to stop the medication because of severe?side effects. Breast pathology revealed DCIS grade 1, 0.25 cm in diameter.? Patient lost her to a glioblastoma at the time of her diagnosis.? She currently denies any ongoing breast symptoms?in either side but does note some scarring at the incision site the lower portion of the right breast.? Mammogram dated 07/31/2024 revealed no mammographic evidence of malignancy in either breast with only benign findings (BI-RADS 2). Annual screening mammography is recommended. She is engaged in the process of selling her house next month. She is hoping to have her mammogram after the closing. She reports a maternal cousin and maternal aunt recently diagnosed with breast cancer. Her maternal cousin was determined to be BRCA positive [facility] Medical History History of right breast cancer Surgical History History of rectal sphincterotomy (05/14/19) History of right knee surgery History of 2 sections History of repair of left rotator cuff History of tonsillectomy History of lumpectomy of right breast Family History Paternal Grandmother History of breast cancer Maternal Grandmother History of breast cancer, Onset Age: 53 Daughter Cervical cancer Maternal Aunt Ovarian cancer Social History Alcohol intake: never Patient Tobacco Use Status: Never used Tobacco Review of Systems Const All systems reviewed & are unremarkable except as noted in HPI and below Physical Exam Vital Signs: Last Vital Signs Pulse 77 06/28/25 09:26 BP 138/72 06/28/25 09:26 BMI result Body Mass Index 27.3 Const General: no acute distress, well developed, alert and awake Nutritional Appearance: well nourished Orientation/consciousness: patient oriented x3 Limitations: no limitations Chest Other: Right breast: Well healed incision with superficial scarring at the 6 o'clock position. No other palpable mass, skin change, nipple discharge, or enlarged lymph node. Left breast: No skin change, no nipple discharge, no palpable mass, no enlarged lymph nodes. Chest/axillae images:  1. Incision lower breast at crease Resp Effort & Inspection: normal respiratory effort, no cough and no respiratory distress Skin Other: Warm, dry, no rash, normal color Neuro Other: Mobility Assessment: 1. 3 meter assessment time (seconds) 5 2. Gait observations: Normal balance and gait General: patient oriented x3 Extrem Other: No cyanosis, clubbing, or edema. Assessment & Plan Assessment & Plan (1) Ductal carcinoma in situ of right breast: Code(s): D05.11 - Intraductal carcinoma in situ of right breast Category: Medical (2) Family history of breast cancer: Code(s): Z80.3 - Family history of malignant neoplasm of breast Category: Medical Plan Status post right breast lumpectomy with partial breast radiation in 2013 for DCIS. Examination today reveals no evidence of recurrence disease in either breast. Mammogram from 07/31/2024 revealed no mammographic evidence of malignancy (BI-RADS 2). She will be due for her annual mammogram in July 2025. She has a increased risk of breast cancer due to family history as well with a recently diagnosed maternal aunt and cousin diagnosed with breast cancer as well as a maternal grandmother with breast cancer. I suggested additional breast evaluation with a breast MRI and she is agreeable to this. She will continue with self-examination, follow up in 1 year. Orders: Orders MR breast BI wo/w con Today D05.11 - Intraductal carcinoma in situ of right breast, Z80.3 - Family history of malignant neoplasm of breast MM screening mammo BI Today D05.11 - Intraductal carcinoma in situ of right breast, Z80.3 - Family history of malignant neoplasm of breast Coding Level of Care Code Est Pt Level 3 (18070) Complex EM visit Add On G2211 Diagnoses Ductal carcinoma in situ of right breast D05.11 Family history of breast cancer Z80.3
[2025-06-28 09:26] VITALS: BP 138/72; PULSE 77; BMI 27.3
--- OUTSIDE RECORDS SUMMARY | 2025-06-28 09:29 | XMS_ITS | Clinical Summary ---
Author Organization [facility] Address [address] [place] [id number] Phone Care Team Providers Care Range Ecologist Name Role Phone Francis Mo MD Primary Care Provider + Allergies Active Allergy Reactions Criticality Noted Date Comments Mupirocin Hives 11/30/2017 Hydrocortisone 01/24/2023 Diphenhydramine Hcl 04/23/2015 Other reaction(s): hives fainted Labetalol Other (See Comments) 11/30/2017 Lisinopril 04/23/2015 Other reaction(s): hives Mold 04/23/2015 Other reaction(s): Unknown Other Other (See Comments) 04/04/2014 Other reaction(s): Other (See Comments) Benadryl. Seasonal Allergy. Pseudoephedrine Hcl 04/04/2014 Other reaction(s): Other (See Comments) Sulfa (Sulfonamide Antibiotics) Hives 04/04/2014 Sulfamethoxazole-Trimetho prim Hives Medium 04/04/2014 Other reaction(s): hives, Other (See Comments) Sulfur 04/23/2015 Other reaction(s): fainted Black [place] Unknown 04/23/2015 Medications LORazepam (ATIVAN) 1 MG tabletIndication s:Patellar tendinitis of left knee Take 1 tablet (1 mg total) by mouth once for 1 dose. 1 tablet 11/16/2024 Active Active Problems Problem Noted Date Diagnosed Date Left knee pain 06/11/2020 Left ankle pain 06/11/2020 Sprain of anterior talofibular ligament of right ankle 02/15/2019 Complex regional pain syndro me type 1 affecting right lower leg 02/15/2019 Right ankle pain 02/15/2019 Right leg pain 02/15/2019 Encounters Date Type Department Care Team Description 04/22/2025 9:40 AM EDT Office Visit [facility] [address] [place] [id number] Candie Snow PA-C Chronic pain in right foot (Primary Dx); Contusion of right foot, initial encounter 04/22/2025 9:11 AM EDT - 04/22/2025 11:59 PM EDT Hospital Encounter [address] [address] Candie Snow PA-C Discharge Disposition: Home or Self Care 03/28/2025 9:30 AM EDT Office Visit [facility] [address] [place] [id number] Brenton Foy PA-C Contusion of right foot, initial encounter (Primary Dx); Crushing injury of right foot, initial encounter; History of reflex sympathetic dystrophy 03/28/2025 Ancillary Orders [facility],Outside Imaging [address] [place] [address] Unknown, Unknown, from Last 3 Months Social History Tobacco Use Types Packs/Day Years Used Date Smoking Tobacco: Never Smokeless Tobacco: Never Alcohol Use Standard Drinks/Week Comments Yes 0 (1 standard drink = 0.6 oz pur e alcohol) Education Answer Date Recorded Are you interested in more education? Not on sultana e 03/11/2023 Are you concerned about learning? Not on file 03/11/2023 No 03/11/2023 No 03/11/2023 Digital Access Answer Date Recorded No 04/09/2023 No 04/09/2023 Reliable internet access at home? Not on file 04/09/2023 Device with a working camera? Not on file Comments Unknown Sex and Gender Information Value Date Recorded Sex Assigned at Female 12/06/2022 1:58 PM EST Legal Sex Female 10:34 PM EDT Gender Identity Female 12/06/2022 1:58 PM EST Sexual Orientation Not on file Last Filed Vital Signs Vital Sign Reading Time Taken Comments Blood Pressure 125/65 02/21/2019 2:01 PM EDT Pulse 78 02/21/2019 2:01 PM EDT Temperature - - Respiratory Rate - - Oxygen Saturation - - Inhaled Oxygen Concentration - - Weight 67.6 kg (149 lb) 11/15/2024 11:32 AM EST Height 154.9 cm (5' 1 ) 11/15/2024 11:32 AM EST Body Mass Index 28.15 11/15/2024 11:32 AM EST Plan of Treatment Health Maintenance Due Date Last Done Comments Adult Td,Tdap Booster 1963 LIPID PANEL 1963 DEPRESSION SCREENING 1975 HEPATITIS C SCREENING 1981 HIV ONE-TIME SCREENING (18-6 5 YEARS) 1981 PAP SMEAR 1984 SCREENING FOR DIABETES 1998 MAMMOGRAM 2003 COLOGUARD 2008 COLONOSCOPY 2008 COLORECTAL CANCER SCREENING 2008 FIT TEST 2008 FOBT 2008 SIGMOIDOSCOPY 2008 VIRTUAL COLONOSCOPY 2008 PNEUMOCOCCAL VACCINES (50+ years) (1 of 1 - PCV) 2013 ZOSTER VACCINES (1 of 2) 2013 COVID-19 VACCINE ( - 2023-2 5 season) 2024 11/17/2021, 02/12/2021, 01/14/2021 RSV VACCINE (1 - 1-dose 75+ series) 2038 SMOKING STATUS SCREENING (On ce After 26 Yrs) Completed 12/26/2024 HEPATITIS A VACCINES Aged Out No long er eligible based on patient's age to complete this topic HIB VACCINES Aged Out No longer eligi ble based on patient's age to complete this topic MENINGOCOCCAL VACCINES (ACWY) Aged Out No longer eligible based on patient's age to complete this topic MENINGOCOCCAL VACCINES (B) Aged Out N o longer eligible based on patient's age to complete this topic Medical Devices Not on file Procedures Procedure Name Priority Date/Time Associated Diagnosis Comments XR FOOT 3 OR MORE VIEWS (RIGHT) Routine 04/22/2025 9:22 AM EDT Foot fracture from Last 3 Months Results * XR FOOT 3 OR MORE VIEWS (RIGHT) (04/22/2025 9:22 AM EDT) Narrative SYSTEMGENERATED, DOCUMENTATION - 04/22/2025 9:23 AM EDT This image report has been auto-finalized and has not been read by a Radiologist. Interpretation has been included in the provider encounter note for this date of service. Candie Snow PA-C IMG XR LOWER EXTREMITY Fin al Result from Last 3 Months Insurance MEDICARE PART A & B Member Subscriber Plan / Payer (Ef fective 2018-Present) Name:Vandana Gardner Member ID:[id number] Relation to Subscriber:Self Name:Vandana Gardner Subscriber ID:[id number] Payer ID:[id number] Group ID:Not on file Type:Medicare Address: [facility] [employer] [facility] [address] [address] [place] MED[place] POS PPO REPLACEMENT MEDICARE PART A & B [place] MEDIC[place] POS PPO REPLACEMENT MEDICARE PART A & B MEDICARE PART A & B MEDICARE PART A & B [place] MEDIC[place] POS PPO REPLACEMENT MEDICARE PART A & B MEDICARE PART A & B MEDICARE POS PPO REPLACEMENT MEDICARE PART A & B MEDICARE POS PPO REPLACEMENT MEDICARE PART A & B [place] MEDIC[place] POS PPO REPLACEMENT Care Teams Range Ecologist Relationship Specialty Start Date End Date Francis Mo MD [address] [address] PCP - General 11/17/17 Additional Source Comments The information contained in this document represents components of the legal health record. It is not the complete legal health record.[facility]
== END 2025-06-28 09:38 | disposition home or self-care (01) ==
LOC: HO.HGS 09:15
PROVIDERS: PCP Internal Medicine; Visit Provider Surgery
DX: D05.11 Intraductal carcinoma in situ of right breast (principal); Z80.3 Family history of malignant neoplasm of breast
CPT/HCPCS: 99213; G2211

== ENCOUNTER → 2025-06-28 09:15 | Outpatient (BNVA) | payer MEDICARE, SELFPAY | PROVIDERS: PCP Internal Medicine; Visit Provider Surgery | DX: D05.11 Intraductal carcinoma in situ of right breast (principal); Z80.3 Family history of malignant neoplasm of breast | CPT/HCPCS: 99212 ==

== ENCOUNTER → 2025-08-07 15:48 | Outpatient (BNV) | payer MEDICARE, SELFPAY | PROVIDERS: Visit Provider Internal Medicine | DX: Z80.3 Family history of malignant neoplasm of breast (principal) | CPT/HCPCS: 77049 ==

== ENCOUNTER 2025-08-07 15:49 | Outpatient (REF) | payer MEDICARE, SELFPAY ==
--- NOTE | ~2025-08-07 | MR_ITS ---
EXAMINATION: MR BREAST WITHOUT AND WITH CONTRAST, BILATERAL CLINICAL INFORMATION: High risk strong family history of breast cancer including grandmother and first cousin. Patient is having on and off right breast pain the location is not specified. History of right lumpectomy in 2013. COMPARISON: Comparison is made with relevant prior imaging. TECHNIQUE: MR imaging of the breast was performed using T1, T2 and fat saturated techniques. Dynamic multiphase imaging was also performed after the administration of intravenous gadolinium contrast agent. Computer generated 3D reconstruction and enhancement kinetic analysis was ulitized by the radiologist in the interpretation of this examination. FINDINGS: Breast composition: Heterogeneous fibroglandular breast tissue Background parenchymal enhancement: Moderate LEFT BREAST: No suspicious enhancing masses or areas of non mass enhancement. No axillary or internal mammary adenopathy. RIGHT BREAST: Right post lumpectomy changes. No suspicious enhancing masses or areas of non mass enhancement. No axillary or internal mammary adenopathy. Limited views of the chest and abdomen are unremarkable. MR/MR breast BI wo/w con IMPRESSION: No MR specific evidence of malignancy. ASSESSMENT: LEFT BREAST: BI-RADS 1-Negative RIGHT BREAST: BI-RADS 2-Benign RECOMMENDATIONS: Yearly screening mammography Yearly Breast MRI screening surveillance. Electronically signed by: Ainsley Ibrahim DO 08/07/2025 08:19 PM EDT
--- OUTSIDE RECORDS SUMMARY | 2025-08-07 17:58 | XMS_ITS | Clinical Summary ---
Author Organization [address] [facility] Address [address] [place] [address] Phone Care Team Providers Care Orthopedic Technician Name Role Phone Kim Smith Primary Care Provider Allergies Active Allergy Reactions Criticality Noted Date Comments Sulfamethoxazole-Trimethoprim Diphenhydramine Hcl Cortisone Lisinopril Pseudoephedrine Hcl Sulfa (Sulfonamide Antibiotics) Medications loratadine-pseud oephedrine (CLARITIN-D 24-hour) 10-240 mg per 24 hr tablet Take 10 mg by mouth. 03/20/2019 Active multivitamin tablet 04/04/2014 Active Social History Tobacco Use Types Packs/Day Years Used Date Smoking Tobacco: Never Assessed Comments Unknown Sex and Gender Information Value Date Recorded Sex Assigned at Not on file Legal Sex Female 11:41 AM EDT Gender Identity Not on file Sexual Orientation Not on file Last Filed Vital Signs Vital Sign Reading Time Taken Comments Blood Pressure 126/70 09/17/2024 2:17 PM EST Pulse 68 09/17/2024 2:17 PM EST Temperature - - Respiratory Rate - - Oxygen Saturation - - Inhaled Oxygen Concentration - - Weight 67.3 kg (148 lb 6.4 oz) 09/17/2024 2:17 P M EST Height 154.9 cm (5' 1 ) 09/17/2024 2:17 PM EST Body Mass Index 28.04 09/17/2024 2:17 PM EST Plan of Treatment Health Maintenance Due Date Last Done Comments Breast Cancer Screening 1965 DTaP,Tdap,and Td Vaccines (1 - Tdap) 1982 Cervical Cancer Screening: P ap Smear 1984 Pneumococcal Vaccine: 50+ Years (1 of 1 - PCV) 2013 07/14/2014 Zoster Vaccines (1 of 2) 2013 Colorectal Cancer Screening: Colonoscopy 09/01/2024 HIV Screening 09/01/2024 Hepatitis C Screening 09/01/2024 Social Influencers of Health Screening 09/01/2024 Depression Screening 11/14/2024 COVID-19 Vaccine (4 - 2024-2 6 season) 2025 11/17/2021, 02/12/2021, 01/14/2021 Influenza Vaccine (#1) 2025 07/14/2014 RSV Immunization Adult Patients (1 - 1-dose 75+ series) 2038 HIB Vaccines Aged Out No longer eligi ble based on patient's age to complete this topic HPV Vaccines Aged Out No longer eligi ble based on patient's age to complete this topic Hepatitis A Vaccines Aged Out No long er eligible based on patient's age to complete this topic Hepatitis B Vaccines Aged Out No long er eligible based on patient's age to complete this topic IPV Vaccines Aged Out No longer eligi ble based on patient's age to complete this topic MMR Vaccines Aged Out No longer eligi ble based on patient's age to complete this topic Meningococcal ACWY Vaccine Aged Out N o longer eligible based on patient's age to complete this topic Meningococcal B Vaccine Aged Out No l onger eligible based on patient's age to complete this topic RSV Immunization Patients Under 20 months Aged Out No longer eligible b ased on patient's age to complete this topic Varicella Vaccines Aged Out No longer eligible based on patient's age to complete this topic Insurance [facility] [address] [place] [address] Care Teams Orthopedic Technician Relationship Specialty Start Date End Date Kim Smith PA [address] [facility] [address] [place] [address] PCP - General 06/21/24
--- OUTSIDE RECORDS SUMMARY | 2025-08-07 18:00 | XMS_ITS | Clinical Summary ---
Author Organization [facility] Address [address] [place] [phone] Phone Care Team Providers Care Ticket Worker Name Role Phone Francis Mo MD Primary [...] Comments) Sulfur 04/23/2015 Other reaction(s): fainted Black [place] Unknown 04/23/2015 Medications LORazepam (ATIVAN) 1 MG [...] ankle pain 02/15/2019 Right leg pain 02/15/2019 Social History Tobacco Use Types Packs/Day Years [...] 2013 ZOSTER VACCINES (1 of 2) 2013 INFLUENZA VACCINE (#1) 2025 07/14/2014 COVID-19 VACCINE (4 - 2024-2 6 season) 2025 11/17/2021, 02/12/2021, 01/14/2021 RSV VACCINE (1 - [...] this topic Medical Devices Not on file [place] [id number] [place] MED[place] POS PPO REPLACEMENT [...] [place] REPLACEMENT Care Teams Ticket Worker Relationship Specialty Start Date End Date Francis Mo MD 75 [facility] [address] [place] [address] PCP - General 11/17/17 Additional Source Comments The information contained in this document represents components of the legal health record. It is not the complete legal health record.[facility]
--- OUTSIDE RECORDS SUMMARY | 2025-08-07 18:00 | XMS_ITS | Encounter Summary ---
Author Organization [facility] Address [address] [place] [address] [place] [phone] Phone Care Team Providers Care Underwriting Sales Representative Name Role Phone Francis Mo MD Primary Care Provider + Encounter Details Date Type Department Care Team (Late st Contact Info) Description 10/19/2024 Procedure Pass [facility], [address] [address] Social History Tobacco Use Types Packs/Day Years [...] PM EST Sexual Orientation Not on file documented as of this encounter Plan of Treatment Not on file documented as of this encounter Visit Diagnoses Not on filedocumented in this encounter Care Teams Underwriting Sales Representative Relationship Specialty Start Date End Date Francis Mo MD 75 [facility] [address] [place] [address] PCP - General 11/17/17 documented as of this encounter Additional Source Comments The information contained in this document represents components of the legal health record. It is not the complete legal health record.[facility]
== END 2025-08-07 15:50 | disposition home or self-care (01) ==
LOC: HO.MRI 15:49
PROVIDERS: Visit Provider Surgery
DX: Z12.39 Encounter for other screening for malignant neoplasm of breast (principal); D05.11 Intraductal carcinoma in situ of right breast; Z80.3 Family history of malignant neoplasm of breast
CPT/HCPCS: 77049; A9585

== ENCOUNTER → 2025-08-22 08:45 | Outpatient (BNV) | payer MEDICARE, SELFPAY | PROVIDERS: PCP Internal Medicine; Visit Provider Internal Medicine | DX: Z12.31 Encounter for screening mammogram for malignant neoplasm of breast (principal) | CPT/HCPCS: 77063; 77067 ==

== ENCOUNTER 2025-08-22 08:51 | Outpatient (REF) | payer MEDICARE, SELFPAY | END 2025-08-22 08:52 | disposition home or self-care (01) | LOC: HO.MAMMO 08:51 | PROVIDERS: PCP Internal Medicine; Visit Provider Surgery | DX: Z12.31 Encounter for screening mammogram for malignant neoplasm of breast (principal) | CPT/HCPCS: 77063; 77067 ==